=== PATIENT | female | born 1970 | race Caucasian/White ===

== ENCOUNTER → 2017-09-23 | Outpatient (CLI) | payer BC ==
--- NOTE | 2017-09-24 10:23 | MM ---
Reason for exam: screening (asymptomatic). Last mammogram was performed 2 years and 4 months ago. History: Family history of breast cancer in grandmother at age 86. Took hormonal contraceptives beginning at age 20. Physical Findings: A clinical breast exam by your physician is recommended on an annual basis and results should be correlated with mammographic findings. MG 3D Screening Mammo W/Cad Bilateral CC and MLO view(s) were taken. Prior study comparison: May 28, 2015, bilateral MG screening mammo w CAD. December 25, 2011, bilateral digital screening mammo w/CAD. The breast tissue is heterogeneously dense. This may lower the sensitivity of mammography. There is no discrete abnormality. ASSESSMENT: Negative, BI-RAD 1 RECOMMENDATION: Routine screening mammogram of both breasts in 1 year.
== END | disposition home or self-care (01) ==
LOC: RADMAMWWP 13:23
PROVIDERS: ATTEND Family Medicine
DX: Z12.31 Encounter for screening mammogram for malignant neoplasm of breast (principal)
CPT/HCPCS: 77063; 77067

== ENCOUNTER → 2019-05-12 | Outpatient (CLI) | payer BC ==
[2019-05-12 17:30] LABS: Anti-DNA, DS unit <1.0 IU/mL; DNA Double-Stranded NEGATIVE (NEGATIVE); JO-1 IgG Antibody <0.2 AI
[2019-05-13 15:17] LABS: Angiotensin-1 Converting Enz. 35 U/L (8-52)
[2019-05-15 15:16] LABS: C-ANCA <1:20 Titer (<1:20)
== END | disposition home or self-care (01) ==
LOC: LABWHC1 07:48
DX: D86.9 Sarcoidosis, unspecified (principal); M31.7 Microscopic polyangiitis; M35.01 Sjogren syndrome with keratoconjunctivitis
CPT/HCPCS: 36415; 82164; 82784; 82785; 86225; 86235; 86255; 86618; 86780

== ENCOUNTER → 2020-09-10 | Outpatient (CLI) | payer BC ==
--- NOTE | 2020-09-12 09:25 | MM ---
Reason for exam: screening (asymptomatic). Last mammogram was performed 3 years ago. History: Family history of breast cancer in grandmother at age 86. Took hormonal contraceptives beginning at age 20. Physical Findings: A clinical breast exam by your physician is recommended on an annual basis and results should be correlated with mammographic findings. MG 3D Screening Mammo W/Cad Bilateral CC and MLO view(s) were taken. Prior study comparison: September 23, 2017, bilateral MG 3d screening mammo w/cad. May 28, 2015, bilateral MG screening mammo w CAD. The breast tissue is heterogeneously dense. This may lower the sensitivity of mammography. ASSESSMENT: Negative, BI-RAD 1 RECOMMENDATION: Routine screening mammogram of both breasts in 1 year.
== END | disposition home or self-care (01) ==
LOC: RADMAMWWP 09:39
PROVIDERS: ATTEND Family Medicine
DX: Z12.31 Encounter for screening mammogram for malignant neoplasm of breast (principal); Z80.3 Family history of malignant neoplasm of breast
CPT/HCPCS: 77063; 77067

== ENCOUNTER → 2021-04-25 | Outpatient (CLI) | payer BC ==
[2021-04-25 23:15] LABS: Basophils # (A) 0.04 X 10*3/uL (0.00-0.10); Basophils % (A) 0.8 %; Eosinophils # (A) 0.08 X 10*3/uL (0.04-0.35); Eosinophils % (A) 1.5 %; HCT 39.6 % (37.2-46.3); HGB 12.4 g/dL (12.0-15.0); Lymphocytes # (A) 1.18 X 10*3/uL (0.90-5.00); Lymphocytes % (A) 22.4 %; MCH 27.8 pg (27.0-32.0); MCHC 31.3 g/dL (32.0-37.0); MCV 88.8 fL (80.0-97.0); Mean Platelet Volume 12.7 fL (9.5-12.2); Monocytes # (A) 0.44 X 10*3/uL (0.20-1.00); Monocytes % (A) 8.3 %; Neutrophils # (A) 3.52 X 10*3/uL (1.80-7.70); Neutrophils % (A) 66.8 %; Platelet Count 223 X 10*3/uL (140-440); RBC 4.46 X 10*6/uL (4.10-5.20); RDW 12.8 % (11.5-14.5); WBC 5.27 X 10*3/uL (4.50-10.00)
== END | disposition home or self-care (01) ==
LOC: LABPAT 15:05
PROVIDERS: ATTEND Obstetrics & Gynecology
DX: Z01.818 Encounter for other preprocedural examination (principal)
CPT/HCPCS: 36415; 85025; 93005

== ENCOUNTER → 2021-04-28 | Day surgery (SDC) | payer BC ==
[2021-04-25 09:58] VITALS: BMI 26.2
--- NOTE | 2021-04-27 17:37 | P.HPOB ---
History of Present Illness H&P Date: 04/27/21 Chief Complaint: Menorrhagia with irregular cycle This is a 50 y.o. female, 3, para 2, who presents for dilation and curettage with hysteroscopy due to menorrhagia with irregular cycle. She has been having irregular cycles every 1-2 months for the last year. She started bleeding 03/12/2021 and hasn't stopped yet. Did try Provera and it increased her bleeding, but after she stopped it, she continued bleeding. She re-started after about 4 days and her bleeding has slowed, but hasn't stopped. Ultrasound showed uterus anteverted measuring 10 x 6.5 x 5.5 cm with lining of 16.1 mm. There were simple cysts on both ovaries. OB Hx: . 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 History of tubal ligation. Social Hx: . 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 Review of Systems Constitutional: Reports night sweats, Denies chills, Denies fever Eyes: denies blurred vision, denies pain Ears, nose, mouth and throat: Denies headache, Denies sore throat Cardiovascular: Denies chest pain, Denies shortness of breath Respiratory: Denies cough Gastrointestinal: Denies abdominal pain, Denies diarrhea, Denies nausea, Denies vomiting Genitourinary: Reports abnormal vaginal bleeding, Reports Menstruation: Reports menses 8 or > days, Reports menses variable Musculoskeletal: Denies myalgias Integumentary: Denies pruritus, Denies rash Neurological: Denies numbness, Denies weakness Psychiatric: Reports anxiety, Denies depression Past Medical History Past Medical History: Hypertension History of Any Multi-Drug Resistant Organisms: None Reported Past Surgical History: Tubal Ligation Additional Past Surgical History / Comment(s): D&C, COLONOSCOPY Past Anesthesia/Blood Transfusion Reactions: No Reported Reaction Smoking Status: Never smoker - Past Family History Mother Family Medical History: Cancer Additional Family Medical History / Comment(s): LYMPHOMA Medications and Allergies Home Medications Medication Instructions Recorded Confirmed Type Calcium Citrate 400 mg PO DAILY 04/25/21 04/28/21 History Multi Vitamin 1 tab PO DAILY 04/25/21 04/28/21 History Ybfjtlpk-Xdhvjhmlo-Azrrfiwq 1 applic LEFT EYE HS 04/25/21 04/28/21 History [Maxitrol Ophth Oint] amLODIPine [Norvasc] 10 mg PO DAILY 04/25/21 04/28/21 History medroxyPROGESTERone [Provera] 10 mg PO DAILY 04/25/21 04/28/21 History Allergies Allergy/AdvReac Type Severity Reaction Status Date / Time formaldehyde Allergy SKIN Verified 04/28/21 09:45 PROBLEM,SWELLING Exam Osteopathic Statement: *. No significant issues noted on an osteopathic structural exam other than those noted in the History and Physical/Consult. HEENT: within normal limits Heart: regular rate and rhythm Lungs: clear to auscultation bilaterally Abdomen: soft, non-tender Pelvic: uterus anteverted, non-tender Extremities: neg. Radha's Assessment and Plan (1) Menorrhagia with irregular cycle Current Visit: No Status: Acute Code(s): N92.1 - EXCESSIVE AND FREQUENT MENSTRUATION WITH IRREGULAR CYCLE SNOMED Code(s): 339040659 Plan: Proceed with dilatation and curettage with hysteroscopy. I have discussed the risks, benefits, and alternative therapies for the above- mentioned procedure and for both sedation/anesthesia as well as necessary blood products administration, if indicated, as they pertain to this patient. The patient has indicated her understanding and acceptance of the risks and procedures discussed.
[~2021-04-28] MED LIST: DEXAMETHASONE SOD PHOSPHATE 4 MG/ML 1 ML VIAL IV ONE; HYDROmorphone 0.5 MG/0.5 ML SYRINGE IVP PRN; KETOROLAC 15 MG/ML 1 ML VIAL IVP ONE; LACTATED RINGERS 1,000 ML IV SCH; LIDOCAINE 1% INJ 10MG/ML (20 ML MDV) ONE; MIDAZOLAM 2 MG/2 ML VIAL ONE; ONDANSETRON 4 MG/2 ML VIAL IVP ONE; PROPOFOL 10 MG/ML 20 ML VIAL IV ONE; Pre Op ABX Message 1 EACH MISC MISCELLANE ONE; fentaNYL (PF) 50 MCG/ML 2 ML AMP ONE
--- NOTE | 2021-04-28 10:50 | P.OP ---
Date of Procedure: 04/28/21 Preoperative Diagnosis: Menorrhagia with irregular cycle Postoperative Diagnosis: Same Procedure(s) Performed: Dilation and curettage with hysteroscopy Anesthesia: other (Mask general) Surgeon: Leandra Londono Estimated Blood Loss (ml): 2 Pathology: other (Endometrial curettings) Condition: stable Disposition: same day Indications for Procedure: This is a 50 y.o. female, 3, para 2, who presents for dilation and curettage with hysteroscopy due to menorrhagia with irregular cycle. She has been having irregular cycles every 1-2 months for the last year. She started bleeding 03/12/2021 and hasn't stopped yet. Did try Provera and it increased her bleeding, but after she stopped it, she continued bleeding. She re-started after about 4 days and her bleeding has slowed, but hasn't stopped. Ultrasound showed uterus anteverted measuring 10 x 6.5 x 5.5 cm with lining of 16.1 mm. There were simple cysts on both ovaries. Operative Findings: Uterus is midposition, sounded to 10 cm. No adnexal masses are palpated. Upon hysteroscopy, a dyssynchronous endometrial pattern is noted. Both tubal ostia are visualized. Upon curetting, there is irregular contour palpated in the left anterior wall consistent with a possible submucosal fibroid. Minimal amount of endometrial curettings is obtained. Description of Procedure: The patient is taken to the operating room where she is placed in the dorsal lithotomy position. She is prepped and draped in the normal sterile fashion. Her bladder is drained with a catheter and then removed. Examination is performed under anesthesia. Uterus is sounded be mid position with no adnexal masses palpated. A weighted speculum was placed in the patient's vagina. A right angle retractor was used to visualize the cervix. The anterior lip of the cervix is grasped with an Allis clamp. Uterus is sounded to 10 cm. Cervix is gently dilated with Hollingsworth dilators until a hysteroscope could be passed. Hysteroscopy is performed using normal saline. The above noted findings are made and pictures are taken. Hysteroscope was withdrawn and then the cervix is gently dilated further. A polyp forcep was introduced with minimal tissue obtained. Next a medium-size sharp curet was introduced and sharp curettage was performed until a gritty texture was noted. Slightly irregular contour is noted in the left anterior wall consistent with a possible submucosal fibroid. Minima l tissue was obtained. Next the Allis clamp was removed. No bleeding is noted. All sponges are removed from the vagina all instruments are removed from the vagina. Sponge counts are correct. The patient is then taken to recovery room in stable condition.
[2021-04-28 11:04] VITALS: TEMP 97.2
[2021-04-28 11:34] VITALS: RESP 16
[2021-04-28 11:57] VITALS: BP 122/80; PULSE 72
== END | disposition home or self-care (01) ==
LOC: OR 09:24
PROVIDERS: ATTEND Obstetrics & Gynecology
DX: N92.1 Excessive and frequent menstruation with irregular cycle (principal); N92.0 Excessive and frequent menstruation with regular cycle; F41.9 Anxiety disorder, unspecified; Z79.899 Other long term (current) drug therapy; Z88.8 Allergy status to other drugs, medicaments and biological substances
CPT/HCPCS: 81025; 88305; 58558; J2250; J1100; J2405; J2001; J3010; J1885; J2704

== ENCOUNTER → 2021-05-02 | Outpatient (CLI) | payer BC ==
[2021-05-02 11:04] LABS: Basophils # (A) 0.06 X 10*3/uL (0.00-0.10); Basophils % (A) 0.9 %; Eosinophils # (A) 0.14 X 10*3/uL (0.04-0.35); HGB 11.8 g/dL (12.0-15.0); Lymphocytes # (A) 1.45 X 10*3/uL (0.90-5.00); Lymphocytes % (A) 20.7 %; MCH 27.4 pg (27.0-32.0); MCHC 31.1 g/dL (32.0-37.0); MCV 88.4 fL (80.0-97.0); Mean Platelet Volume 11.6 fL (9.5-12.2); Monocytes # (A) 0.45 X 10*3/uL (0.20-1.00); Monocytes % (A) 6.4 %; Neutrophils # (A) 4.89 X 10*3/uL (1.80-7.70); Neutrophils % (A) 69.7 %; Platelet Count 314 X 10*3/uL (140-440); RDW 12.5 % (11.5-14.5); WBC 7.01 X 10*3/uL (4.50-10.00)
[2021-05-02 15:14] LABS: Erythrocyte Sedimentation Rate 67 mm/Hr (0-20)
[2021-05-02 15:21] LABS: Rheumatoid Factor, Qnt 21 IU/mL (0-15)
[2021-05-02 15:48] LABS: ALT 23 U/L (8-44); AST 20 U/L (13-35); African American GFR (CKD) 96.4 (60.0-200.0); Albumin 3.9 g/dL (3.8-4.9); Albumin/Globulin Ratio 0.89 (1.60-3.17); Alkaline Phosphatase 99 U/L (41-126); BUN/Creat Ratio 11.05 Ratio (12.00-20.00); Blood Urea Nitrogen 9.1 mg/dL (9.0-27.0); Calcium 9.1 mg/dL (8.7-10.3); Chloride 103 mmol/L (96-109); Chol/HDL Ratio 5.09 Ratio; Creatine Kinase 29 U/L (26-186); Globulin 4.3 g/dL (1.6-3.3); Glucose 79 mg/dL (70-110); Non-African American GFR(CKD) 83.2 (60.0-200.0); Potassium 3.8 mmol/L (3.5-5.5); Sodium 138 mmol/L (135-145); Total Protein 8.2 g/dL (6.2-8.2)
[2021-05-02 16:24] LABS: Protein, Total 7.8 g/dL (6.2-8.2)
[2021-05-02 18:30] LABS: Anti-DNA, DS unit <1.0 IU/mL; DNA Double-Stranded NEGATIVE (NEGATIVE)
[2021-05-02 18:32] LABS: Cyclic Citrull Pep IgG Unit <0.5 U/mL; Cyclic Citrullinated Pep IgG NEGATIVE (NEGATIVE)
== END | disposition home or self-care (01) ==
LOC: LABWHC1 08:25
PROVIDERS: ATTEND Family Medicine
DX: E78.89 Other lipoprotein metabolism disorders (principal); K05.223 Aggressive periodontitis, generalized, severe; H02.889 Meibomian gland dysfunction of unspecified eye, unspecified eyelid; D89.0 Polyclonal hypergammaglobulinemia; L94.9 Localized connective tissue disorder, unspecified
CPT/HCPCS: 36415; 80053; 80061; 82550; 84165; 84443; 85025; 85613; 85652; 85730; 86038; 86140; 86200; 86225; 86235; 86431; 86618

== ENCOUNTER 2021-05-06 08:00 | Day surgery (SDC) | payer BC ==
[~2021-05-06 08:00] MED LIST changes: -DEXAMETHASONE SOD PHOSPHATE 4 MG/ML 1 ML VIAL IV ONE; -HYDROmorphone 0.5 MG/0.5 ML SYRINGE IVP PRN; -KETOROLAC 15 MG/ML 1 ML VIAL IVP ONE; +LIDOCAINE 1% (10MG/ML) FOR IV START INTRADERMA PRN; -LIDOCAINE 1% INJ 10MG/ML (20 ML MDV) ONE; -MIDAZOLAM 2 MG/2 ML VIAL ONE; -ONDANSETRON 4 MG/2 ML VIAL IVP ONE; -PROPOFOL 10 MG/ML 20 ML VIAL IV ONE; -Pre Op ABX Message 1 EACH MISC MISCELLANE ONE; -fentaNYL (PF) 50 MCG/ML 2 ML AMP ONE
[2021-05-06 08:33] VITALS: TEMP 98.5
[2021-05-06] MEDS ORDERED: PROPOFOL 10 MG/ML 20 ML VIAL IV ONE (08:47)
--- NOTE | 2021-05-06 09:09 | P.PCN ---
Date of Procedure: 05/06/21 Procedure(s) Performed: BRIEF HISTORY: Patient is a 50-year-old pleasant white female scheduled for an elective colonoscopy as a part of screening for colorectal neoplasia. PROCEDURE PERFORMED: Colonoscopy with snare polypectomy. PREOPERATIVE DIAGNOSIS: Screening for colon cancer. IV sedation per Anesthesia. PROCEDURE: After informed consent was obtained, the patient, was brought into the endoscopy unit. IV sedation was administered by Anesthesia under continuous monitoring. Digital rectal examination was normal. Initially the Olympus CF-160 flexible video colonoscope was then inserted in the rectum, gradually advanced into the cecum without any difficulty. Careful examination was performed as the scope was gradually being withdrawn. Ileocecal valve and the appendiceal orifice were visualized and appeared normal. Prep was excellent. Mucosa of the cecum a 5 mm flat polyp in the base that was removed by snare polypectomy. Rest of the, ascending colon, transverse colon, descending colon, sigmoid colon, and rectum appeared normal. Retroflexion was performed in the rectum and no lesions were seen. The patient tolerated the procedure well. IMPRESSION: 5 mm flat cecal polyp status post polypectomy Rest of the colon appeared normal RECOMMENDATIONS: Findings of this examination were discussed with the patient as well as a family. She was advised to follow with the biopsy results. If the biopsy results adenoma she can have a repeat colonoscopy in 5 years.
[2021-05-06 09:32] VITALS: PULSE 80
[2021-05-06 09:57] VITALS: BP 125/76; RESP 16
== END 2021-05-06 10:00 | disposition home or self-care (01) ==
LOC: ORWHC2ENDO 08:00
PROVIDERS: ATTEND Internal Medicine Gastroenterology
DX: Z12.11 Encounter for screening for malignant neoplasm of colon (principal); K63.5 Polyp of colon; Z79.899 Other long term (current) drug therapy; I10 Essential (primary) hypertension; Z98.51 Tubal ligation status; Z98.890 Other specified postprocedural states; Z88.8 Allergy status to other drugs, medicaments and biological substances
CPT/HCPCS: 81025; 88305; 45385; J2704

== ENCOUNTER → 2021-06-02 | Outpatient (CLI) | payer BC ==
--- NOTE | 2021-06-02 08:07 | CT ---
EXAMINATION TYPE: CT sinus wo con DATE OF EXAM: 06/02/2021 COMPARISON: None available HISTORY: rt sinus mass CT DLP: 660.80 mGycm. Automated Exposure Control for Dose Reduction was Utilized. TECHNIQUE: CT scan of the sinuses is performed without contrast, axial images are obtained, coronal r eformatted images are also reviewed. FINDINGS: Minimal deviation of the bony nasal septum convex to the left side. Slightly paradoxical middle turbi nates. Unremarkable inferior turbinates. Patent infundibula bilaterally as well as ostiomeatal comple xes. Right maxillary sinus polyps/retention cysts measuring up to 16mm and seen mainly in the alveolar rec ess. A polyp/retention cyst is seen at the alveolar recess of the left maxillary sinus measuring up t o 15 mm. Minimal mucosal thickening of the inferior aspects of the maxillary sinuses. Unremarkable ma xillary sinuses otherwise. Non-pneumatization of the frontal sinus. Clear ethmoid air cells. Unremarkable sphenoid sinus with cl ear sphenoethmoidal recesses. Clear visualized portion of the mastoid air cells. Unremarkable visuali zed portion of the brain and orbits. IMPRESSION: Mucosal thickening of the alveolar recesses of the maxillary sinuses with polyps/retention cysts, mor e on the right side as described above. The ethmoid air cells and sphenoid sinus. Hypoplastic frontal sinus.
== END | disposition home or self-care (01) ==
LOC: RADCTMAIN 07:06
PROVIDERS: ATTEND Otolaryngology
DX: J34.89 Other specified disorders of nose and nasal sinuses (principal)
CPT/HCPCS: 70486

== ENCOUNTER → 2022-06-11 | Outpatient (CLI) | payer BC ==
--- NOTE | 2022-06-11 08:58 | BD ---
EXAMINATION TYPE: Axial Bone Density DATE OF EXAM: 06/11/2022 CLINICAL HISTORY: 52 years old Female. ICD-10 CODE: N95.1 MENOPA[address]AL AND FEMALE CLIMACTERIC ST Height: 65.25 Weight: 175.7 FRAX RISK QUESTIONS: Alcohol (3 or more units per day): no Family History (Parent hip fracture): no Glucocorticoids (More than 3mos): no History of Fracture in Adulthood: no Secondary Osteoporosis: 1. Type 1 Diabetes: no 2. Hyperthyroidism: no 3. Menopause before 45: no 4. Malnutrition: no 5. Chronic liver disease: no Rheumatoid Arthritis: no Current Tobacco Use: no RISK FACTORS HISTORY OF: Hip Fracture (Right/Left): no Spine Fracture: no History of Wrist Fracture: no Surgery to Spine/Hip(right/left)/Wrist (right/left): no Family History of Osteoporosis: no Active: somewhat Diet low in dairy products/other sources of calcium: yes Postmenopausal woman: yes Take estrogen and/or progesterone medications: no Lost more than 2 inches in height since high school: no Frequent falls: no Poor Health: no Hyperparathyroidism: no Adrenal Insufficiency: no MEDICATIONS: Prednisone or other steroids: no Thyroid Medications: no Osteoporosis Medications:no Additional Medications: Calcium, Multi vit., Bp Meds x3, Vit D Additional History: EXAM MEASUREMENTS: Bone mineral densitometry was performed using the [employer] Power System. Bone mineral density as measured about the Lumbar spine is: ----- L1-L4(G/cm2): 1.280 T Score Values are as follows: ----- L1: 0.1 ----- L2: 1.1 ----- L3: 1.1 ----- L4: 0.8 ----- L1-L4: 0.8 Z Score Values are as follows: ----- L1: 0.2 ----- L2: 1.1 ----- L3: 1.1 ----- L4: 0.8 ----- L1-L4: 0.8 Bone mineral density has: Decreased -4.7 % since study of: 12/25/2011 Bone mineral density about the R hip (g/cm2): 0.953 Bone mineral density about the L hip (g/cm2): 0.953 T Score values are as follows: -----R Neck: -1.2 -----L Neck: -1.2 -----R Total: -0.4 -----L Total: -0.4 Z Score values are as follows: -----R Neck: -0.7 -----L Neck: -0.6 -----R Total: -0.2 -----L Total: -0.2 Bone mineral density has: Decreased -7.6 % since study of: 12/25/2011 FRAX%s: The graph provided illustrates a 4.9% chance for a major osteoporotic fx and a 0.3% chance fo r the hips probability for fx in 10 years time. IMPRESSION: Osteopenia (T Score between -2.5 and -1). There is slightly increased risk of fracture and the patient may be considered for treatment. Re-Screen 2-5 years. NOTE: T-SCORE=SD OF THE YOUNG ADULT MEAN.
--- NOTE | 2022-06-11 12:06 | MM ---
Reason for Exam: Screening (asymptomatic). Last mammogram was performed 1 year(s) and 9 month(s) ago. Patient History: Menarche at age 13. First Full-Term at age 29. Postmenopausal. Hormonal Contraceptives, starting at age 20. Maternal grandmother had breast cancer, age 86. Risk Values: Ramona 5 year model risk: 1.2%. NCI Lifetime model risk: 9.6%. Prior Study Comparison: 05/28/2015 Bilateral Screening Mammogram, [facility]. 09/23/2017 Bilateral Screening Mammogram, [facility]. 09/10/2020 Bilateral Screening Mammogram, [facility]. Tissue Density: The breast tissue is heterogeneously dense. This may lower the sensitivity of mammography. Findings: Analyzed By CAD. There is no suspicious group of microcalcifications or new suspicious mass in either breast. Overall Assessment: Negative, BI-RAD 1 Management: Screening Mammogram of both breasts in 1 year. A clinical breast exam by your physician is recommended on an annual basis and results should be correlated with mammographic findings. [facility] will attempt to contact patient to return for supplemental views and ultrasound if indicated. Electronically signed and approved by: Moose Flynn DO
== END | disposition home or self-care (01) ==
LOC: RADBDWWP 07:55
PROVIDERS: ATTEND Obstetrics & Gynecology
DX: Z12.31 Encounter for screening mammogram for malignant neoplasm of breast (principal); M85.89 Other specified disorders of bone density and structure, multiple sites; N95.1 Menopausal and female climacteric states; Z80.3 Family history of malignant neoplasm of breast
CPT/HCPCS: 77063; 77067; 77080

== ENCOUNTER → 2023-04-12 | Outpatient (CLI) | payer BC ==
[2023-04-12 19:47] LABS: Basophils # (A) 0.04 X 10*3/uL (0.00-0.10); Basophils % (A) 0.6 %; Eosinophils # (A) 0.14 X 10*3/uL (0.04-0.35); Eosinophils % (A) 2.2 %; HCT 42.8 % (37.2-46.3); HGB 13.5 g/dL (12.0-15.0); Lymphocytes # (A) 2.13 X 10*3/uL (0.90-5.00); Lymphocytes % (A) 32.8 %; MCH 28.4 pg (27.0-32.0); MCHC 31.5 g/dL (32.0-37.0); MCV 90.1 FL (80.0-97.0); Mean Platelet Volume 12.7 FL (9.5-12.2); Monocytes # (A) 0.51 X 10*3/uL (0.20-1.00); Monocytes % (A) 7.9 %; NRBC Per 100 WBC 0 X 10*3/uL (0.00-0.01); Neutrophils # (A) 3.66 X 10*3/uL (1.80-7.70); Neutrophils % (A) 56.3 %; Platelet Count 247 X 10*3/uL (140-440); RBC 4.75 X 10*6/uL (4.10-5.20); RDW 12.4 % (11.5-14.5); WBC 6.49 X 10*3/uL (4.50-10.00)
== END | disposition home or self-care (01) ==
LOC: LABPAT 13:55
PROVIDERS: ATTEND Obstetrics & Gynecology
DX: Z01.818 Encounter for other preprocedural examination (principal); I49.8 Other specified cardiac arrhythmias
CPT/HCPCS: 36415; 85025; 93005

== ENCOUNTER 2023-04-19 06:21 | Day surgery (SDC) | payer BC ==
[2023-04-12 13:12] VITALS: BMI 28.8
--- NOTE | 2023-04-18 16:00 | P.HPOB ---
History of Present Illness H&P Date: 04/18/23 Chief Complaint: Postmenopausal bleeding, endometrial thickening This is a 52 y.o. female, 3, para 2, who presents for dilatation and curettage with hysteroscopy due to postmenopausal bleeding and endometrial thickening. She had a 3 day episode of bleeding in December that was bright red and heavy. She denies any cramping or pain. Her pelvic ultrasound showed uterus measuring 7.4 x 5.5 x 4 cm with endometrial thickness of 10 mm and probable polyp measuring 13 x 12 mm. Her last menstrual period prior to this was February 2021. OB Hx: . History of 2 vaginal deliveries. 1 miscarriage. 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 She has a tubal ligation. Social hx: . 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 Review of Systems Constitutional: Reports night sweats, Denies chills, Denies fever Eyes: denies blurred vision, denies pain Ears, nose, mouth and throat: Denies headache, Denies sore throat Cardiovascular: Denies chest pain, Denies shortness of breath Respiratory: Denies cough Gastrointestinal: Denies abdominal pain, Denies diarrhea, Denies nausea, Denies vomiting Genitourinary: Reports abnormal vaginal bleeding, Denies dysuria, Denies hematuria Menstruation: Reports amenorrhea, Reports postmenopausal Musculoskeletal: Denies myalgias Neurological: Denies numbness, Denies weakness Psychiatric: Denies anxiety, Denies depression Endocrine: Reports flushing, Denies fatigue, Denies weight change Past Medical History Past Medical History: Eye Disorder, Hypertension Additional Past Medical History / Comment(s): LT EYE BLEPHARITIS, MEIBOMIANITIS (OIL GLAND DYSFUNCTION). BILAT SINUS POLYPS, SEVERE PERIODONTAL DISEASE (ALSO BEING SEEN AT [facility]) History of Any Multi-Drug Resistant Organisms: None Reported Past Surgical History: Tubal Ligation Additional Past Surgical History / Comment(s): D&C with hysteroscopy, COLONOSCOPY, sinus surgery (06/27/21) Past Anesthesia/Blood Transfusion Reactions: No Reported Reaction Additional Past Anesthesia/Blood Transfusion Reaction / Comment(s): No hx of blood transfusion. Past Psychological History: No Psychological Hx Reported Smoking Status: Never smoker Past Alcohol Use History: Occasional Past Drug Use History: None Reported - Past Family History Mother Family Medical History: Cancer Additional Family Medical History / Comment(s): LYMPHOMA Medications and Allergies Home Medications Medication Instructions Recorded Confirmed Type Calcium Citrate 1,000 mg PO DAILY 04/25/21 04/12/23 History Multi Vitamin 1 tab PO DAILY 04/25/21 04/12/23 History Ugqremoj-Bfcxewprd-Kwdacorh 1 applic LEFT EYE HS 04/25/21 04/12/23 History [Maxitrol Ophth Oint] amLODIPine [Norvasc] 5 mg PO QAM 04/25/21 04/12/23 History Cetirizine HCl [Zyrtec] 10 mg PO DAILY 04/12/23 04/12/23 History Cohash 40mg 40 mg PO QAM 04/12/23 04/12/23 History Doxycycline [Vibramycin] 20 mg PO BID 04/12/23 04/12/23 History Losartan Potassium 100 mg PO QAM 04/12/23 04/12/23 History Metoprolol Succinate (ER) [Toprol 100 mg PO DAILY 04/12/23 04/12/23 History Xl] Allergies Allergy/AdvReac Type Severity Reaction Status Date / Time formaldehyde Allergy SKIN Verified 04/19/23 06:38 PROBLEM,SWELLING Exam Osteopathic Statement: *. No significant issues noted on an osteopathic structural exam other than those noted in the History and Physical/Consult. HEENT: within normal limits Heart: regular rate and rhythm Lungs: clear to auscultation bilaterally Abdomen: soft, non-tender Pelvic: uterus small, anteverted, non-tender, no adnexal masses or tenderness Extremities: neg. Radha's Assessment and Plan (1) Postmenopausal bleeding Current Visit: No Status: Acute Code(s): N95.0 - POSTMENOPAUSAL BLEEDING SNOMED Code(s): 82928575 (2) Endometrial thickening on ultrasound Current Visit: No Status: Acute Code(s): R93.89 - ABNORMAL FINDINGS ON DX IMAGING OF OTH BODY STRUCTURES SNOMED Code(s): 171762970 Plan: Proceed with dilatation and curettage with hysteroscopy. I have discussed the risks, benefits, and alternative therapies for the above- mentioned procedure and for both sedation/anesthesia as well as necessary blood products administration, if indicated, as they pertain to this patient. The pat daniela has indicated her understanding and acceptance of the risks and procedures discussed.
[~2023-04-19 06:21] MED LIST changes: -LACTATED RINGERS 1,000 ML IV SCH; -LIDOCAINE 1% (10MG/ML) FOR IV START INTRADERMA PRN; +Pre Op ABX Message 1 EACH MISC MISCELLANE ONE
[2023-04-19] MEDS: ONDANSETRON 4 MG/2 ML VIAL IVP ONE (07:00)
[2023-04-19] MEDS ORDERED: HYDROmorphone 0.5 MG/0.5 ML SYRINGE IVP PRN (07:00)
[2023-04-19] MEDS ORDERED: MIDAZOLAM 2 MG/2 ML VIAL IV PRN (07:00)
[2023-04-19] MEDS: LACTATED RINGERS 1,000 ML IV SCH (07:00)
[2023-04-19] MEDS: SCOPOLAMINE 1 MG/72 HR PATCH TRANSDERM ONE (07:01)
[2023-04-19] MEDS: DEXAMETHASONE SOD PHOSPHATE 4 MG/ML 1 ML VIAL IV ONE (07:01)
[2023-04-19] MEDS ORDERED: MIDAZOLAM 2 MG/2 ML VIAL ONE (07:23)
[2023-04-19] MEDS ORDERED: PHENYLEPHRINE-0.9% NACL SYG 1,000 MCG/10 ML SYRINGE ONE (07:23)
[2023-04-19] MEDS ORDERED: LIDOCAINE 1% INJ 10MG/ML (20 ML MDV) ONE (07:23)
[2023-04-19] MEDS ORDERED: fentaNYL (PF) 50 MCG/ML 2 ML AMP ONE (07:23)
[2023-04-19] MEDS ORDERED: KETOROLAC 15 MG/ML 1 ML VIAL ONE (07:23)
[2023-04-19] MEDS ORDERED: PROPOFOL 10 MG/ML 20 ML VIAL IV ONE (07:23)
--- NOTE | 2023-04-19 08:02 | P.OP ---
Date of Procedure: 04/19/23 Preoperative Diagnosis: Postmenopausal bleeding Endometrial thickening Postoperative Diagnosis: Same Procedure(s) Performed: Dilation and curettage with hysteroscopy Anesthesia: CECELIA Surgeon: Leandra Londono Estimated Blood Loss (ml): 2 Pathology: other (Endometrial curettings) Condition: stable Disposition: floor Indications for Procedure: This is a 52 y.o. female, 3, para 2, who presents for dilatation and curettage with hysteroscopy due to postmenopausal bleeding and endometrial thickening. She had a 3 day episode of bleeding in December that was bright red and heavy. She denies any cramping or pain. Her pelvic ultrasound showed uterus measuring 7.4 x 5.5 x 4 cm with endometrial thickness of 10 mm and probable polyp measuring 13 x 12 mm. Her last menstrual period prior to this was February 2021. Operative Findings: Uterus is sounded to 8-1/2 cm. Upon hysteroscopy, a very atrophic endometrial pattern is noted with no polyps visualized. Both tubal ostia are visualized. No adnexal masses are palpated. Very scant endometrial curettings are obtained. Description of Procedure: The patient is taken to the operating room where she is placed in the dorsal lithotomy position. She is prepped and draped in the normal sterile fashion. Her bladder was drained with a catheter. Examination is performed under anesthesia. Uterus is found to be small, anteverted, with no adnexal masses palpated. Next the weighted speculum was placed in the patient's vagina. The anterior lip of the cervix is grasped with a single-tooth tenaculum. The cervix is gently dilated with a Hollingsworth dilator until a uterine sound could be placed. Uterus is sounded to 8-1/2 cm. Cervix is gently dilated further with Hollingsworth dilators until a hysteroscope could be passed. Hysteroscopy was performed using normal saline. The above noted findings are made and pictures are taken. The hysteroscope was withdrawn and the cervix is gently dilated further. A medium- size sharp curet was introduced with minimal tissue obtained. The specimen is removed from the field. Single-tooth tenaculum is removed with no active bleeding noted. All instruments are removed from the vagina. All sponge and needle counts are correct. The patient is then taken to recovery room in stable condition.
[2023-04-19 08:30] VITALS: TEMP 97.4
[2023-04-19 09:21] VITALS: RESP 16
[2023-04-19 09:46] VITALS: BP 124/76; PULSE 54
== END 2023-04-19 09:50 | disposition home or self-care (01) ==
LOC: OR 06:21
PROVIDERS: ATTEND Obstetrics & Gynecology
DX: N95.0 Postmenopausal bleeding (principal); I10 Essential (primary) hypertension; Z79.899 Other long term (current) drug therapy; Z88.8 Allergy status to other drugs, medicaments and biological substances
CPT/HCPCS: 81025; 88305; 58558; J2250; J1100; J2405; J2001; J3010; J1885; J2704; J2371

== ENCOUNTER → 2023-12-31 | Outpatient (CLI) | payer BC ==
--- NOTE | 2023-12-31 10:45 | MM ---
Reason for Exam: Screening (asymptomatic). Last mammogram was performed 1 year(s) and 7 month(s) ago. Patient History: Menarche at age 13. First Full-Term at age 29. Postmenopausal. Hormonal Contraceptives, starting at age 20. Maternal grandmother had breast cancer, age 86. Risk Values: Ramona 5 year model risk: 1.2%. NCI Lifetime model risk: 9.4%. Prior Study Comparison: 09/23/2017 Bilateral Screening Mammogram, [facility]. 09/10/2020 Bilateral Screening Mammogram, [facility]. 06/11/2022 Bilateral MG 3D screening mammo w/cad, [facility]. Tissue Density: The breasts are heterogeneously dense, which may obscure small masses. Findings: Analyzed By CAD. Right breast: There is no suspicious group of microcalcifications or new suspicious mass. Left breast: There is no suspicious group of microcalcifications or new suspicious mass. Overall Assessment: Negative, BI-RAD 1 Management: Screening Mammogram of both breasts in [address] [facility] will attempt to contact patient to return for supplemental views and ultrasound if indicated. Patient should continue monthly self-breast exams. A clinical breast exam by your physician is recommended on an annual basis. This exam should not preclude additional follow-up of suspicious palpable abnormalities. Note on Ramona scores and lifetime risk: 1. A Ramona score greater than 3% is considered moderate risk. If this is the case, consider specialist referral to assess eligibility for a risk reducing agent. 2. If overall lifetime risk for the development of breast cancer is 20% or higher, the patient may qualify for future screening with alternating mammogram and breast MRI. [facility], , 12/31/2023 10:42 AM. Electronically signed and approved by: Moose Flynn DO
== END | disposition home or self-care (01) ==
LOC: RADMAMWWP 07:47
PROVIDERS: ATTEND Family Medicine
DX: Z12.31 Encounter for screening mammogram for malignant neoplasm of breast
CPT/HCPCS: 77063; 77067